=== PATIENT | female | born 1955 | race Caucasian/White ===

== ENCOUNTER → 2018-12-01 | Outpatient (CLI) | payer OTHER | END | disposition home or self-care (01) | LOC: PLD 11:26 → LAB SHORT 11:26 | DX: D48.5 Neoplasm of uncertain behavior of skin (principal) | CPT/HCPCS: 88305 ==

== ENCOUNTER → 2018-12-15 | Outpatient (CLI) | payer OTHER | END | disposition home or self-care (01) | LOC: LAB SHORT 14:10 → PLD 14:10 | DX: D48.5 Neoplasm of uncertain behavior of skin (principal) | CPT/HCPCS: 88305 ==

== ENCOUNTER 2019-12-19 18:55 | Emergency (ER) | payer SELFPAY ==
[~2019-12-19] VITALS: Ht 167.6 cm; Wt 81.7 kg
[2019-12-19] MEDS ORDERED: [UNRECOGNIZED DRUG - REMARK] (19:24)
[2019-12-19] MEDS ORDERED: AMIT10 PO (19:25)
[2019-12-19] MEDS ORDERED: MELO7.5 PO (20:15)
== END 2019-12-19 20:21 | disposition home or self-care (01) ==
LOC: ER 18:55
DX: M25.552 Pain in left hip (principal); G62.9 Polyneuropathy, unspecified; Z85.3 Personal history of malignant neoplasm of breast
CPT/HCPCS: 73502; 99283-25

== ENCOUNTER 2020-01-13 20:00 | Inpatient (IN) | payer OTHER ==
[~2020-01-13] VITALS: Ht 167.6 cm; Wt 96.0 kg
[~2020-01-13 20:00] MED LIST: AMIT10 PO; MELO7.5 PO; [UNRECOGNIZED DRUG - REMARK]
[2020-01-13] MEDS ORDERED: Norco 10-325 T1 EACH PO (20:23)
[2020-01-13] MEDS ORDERED: ONDA4 PO (20:24)
[2020-01-13 20:33] LABS: BASOPHILS ABSOLUTE AUTO 0.03 K/mm3 (0.00-0.23); BASOPHILS PERCENT AUTO 0 % (0-2); EOSINOPHILS ABSOLUTE AUTO 0.05 K/mm3 (0.00-0.68); EOSINOPHILS PERCENT AUTO 1 % (0-6); Hematocrit 27.2 % (33.0-51.0); Hemoglobin 8.5 g/dL (11.5-16.0); IMMATURE GRAN ABSOLUTE AUTO 0.05 K/mm3 (0.00-0.10); IMMATURE GRAN PERCENT AUTO 1 % (0-1); LYMPHOCYTES ABSOLUTE AUTO 1.02 K/mm3 (0.84-5.20); LYMPHOCYTES PERCENT AUTO 13 % (21-46); MONOCYTES ABSOLUTE AUTO 0.59 K/mm3 (0.16-1.47); MONOCYTES PERCENT AUTO 7 % (4-13); Mean Corpuscular HGB 23.9 pg (26.0-34.0); Mean Corpuscular HGB Conc 31.3 g/dL (31.5-36.5); Mean Corpuscular Volume 77 fL (80-100); Mean Platelet Volume 9.1 fL (9.1-12.4); NEUTROPHILS ABSOLUTE AUTO 6.28 K/mm3 (1.96-9.15); NEUTROPHILS PERCENT AUTO 78 % (41-73); Platelet Count 212 K/mm3 (150-400); RDW Coefficient Variation 15.6 % (11.7-14.2); RDW Standard Deviation 43.8 fL (35.1-46.3); Red Blood Cell Count 3.55 M/mm3 (3.80-5.20); White Blood Cell Count 8.02 K/mm3 (4.00-11.30)
[2020-01-13 20:43] LABS: Albumin, Blood 2.4 g/dL (3.4-5.0); Albumin/Globulin Ratio 0.6 (0.8-1.8); Bilirubin, Total 0.3 mg/dL (0.1-1.0); Bun/Creatinine Ratio 15.6 (12.0-20.0); Calcium, Blood 9.4 mg/dL (8.5-10.1); Creatinine, Blood 1.28 mg/dL (0.40-1.00); Globulin, Blood 4.3 g/dL (2.2-4.0); Potassium, Blood 3.6 mmol/L (3.5-5.5); Total Protein, Blood 6.7 g/dL (6.4-8.2)
[2020-01-13 22:16] LABS: Source, Urine Clean Catch
[2020-01-13 22:21] LABS: Bilirubin, Urine Neg (Neg); Blood, Urine 2+ (Neg); Glucose Qualitative, Urine Neg (Neg); Ketones, Urine Neg (Neg); Leukocyte Esterase, Urine Neg (Neg); Nitrite, Urine Neg (Neg); Protein, Urine 2+ (Neg); Urobilinogen, Urine NORM (Normal)
[2020-01-13 22:28] LABS: Amorphous Mod (0-Heavy); Appearance, Urine Clear (Clear); Bacteria Rare /hpf; Color, Urine Yellow (P-Yellow); Red Blood Cells, Urine 0-2 /hpf (0-2); Squamous Epithelial Cells Not Seen /hpf (Few); White Blood Cells, Urine Rare /hpf (0-5)
--- NOTE | 2020-01-14 02:38 | NUR ---
ARRIVAL TO UNIT PT ARRIVED TO UNIT VIA GURNEY FROM ER AT APPROX 0220. PT SLID WITH MULTPLE ASSIST TO BED USING SLIDE SHEET. PT TOLERATED WELL WITH A GRIMACE THAT SUBSIDED ONCE SHE SETTLED IN TO THE BED. PLACED ON 2L OXYGEN WHICH WAS WHAT SHE ARRIVED ON. PT STATES PAIN LEVEL OF 8 AND STATES THAT A 7 WOULD BE ACCEPTABLE FOR HER. SHE DENIES SOB UNLESS HER PAIN INCREASES. SHE IS EDUCATED ON THE UNIT AND CALL LIGHT, SHE IS AWARE OF HER NPO ORDERS. WILL CONTINUE TO MONITOR FOR INCREASES IN PAIN AND SOB. HER LEFT LEG IS EXTERNALLY ROTATED AND SHORTENED. VERY EDEMETOUS PT STATES IS NEW SINCE THE FX.
[2020-01-14 04:32] LABS: Hematocrit 25.3 % (33.0-51.0); Hemoglobin 7.9 g/dL (11.5-16.0); Mean Corpuscular HGB 23.7 pg (26.0-34.0); Mean Corpuscular HGB Conc 31.2 g/dL (31.5-36.5); Mean Corpuscular Volume 76 fL (80-100); Mean Platelet Volume 9.1 fL (9.1-12.4); Platelet Count 193 K/mm3 (150-400); RDW Coefficient Variation 15.4 % (11.7-14.2); RDW Standard Deviation 42.8 fL (35.1-46.3); Red Blood Cell Count 3.33 M/mm3 (3.80-5.20)
[2020-01-14 04:48] LABS: Bun/Creatinine Ratio 17.6 (12.0-20.0); Calcium, Blood 9.3 mg/dL (8.5-10.1); Creatinine, Blood 1.19 mg/dL (0.40-1.00); Potassium, Blood 3.7 mmol/L (3.5-5.5)
--- NOTE | 2020-01-14 05:43 | NUR ---
SHIFT SUMMARY L FEMUR FX, AA0X4. NO ACUTE CHANGES SINCE ARRIVAL. PT HAS BEEN RESTING IN BED. MEDICATED WITH 1MG DILAUDID X2. NO SOB. PT REMAINS ON 2L OXYGEN. LEFT LEG REMAINS MORE SWOLLEN THAN R LEG. FEELS SOMEWHAT COOLER THAN THE RIGHT FOOT. DENIES ANY CHANGE IN SENSATION FROM PT'S BASELINE. NPO PER ORDERS.
--- NOTE | 2020-01-14 07:00 | NUR ---
RECVD REPORT FROM PREVIOUS SHIFT ZAHRAA STEVENSON. PT LYING IN BED, REQUESTS PAIN MEDICATION WITH RATED PAIN AT 9/10, GRIMACE PRESENT, MEDICATED PER MAR
--- NOTE | 2020-01-14 09:40 | NUR ---
Brief supportive therapeutic visit due to Pt's extreme pain. Initialy Pt reports 8/10 pain in her hip and by the end of visit Pt is reporting 9/10 pain. Pt reports mild to moderate anxiety as well. Pt reports her daughter and granddaughter is living with her. She reports adequate support between family and friends. Pt reports at baseline Pt takes her breakthrough pain medication every 6 hours but has increased need of taking pain medication every 4 hours over the last week or so. Ended visit due to Pt's pain. Spoke with Bedside RN Bernarda, discussed case and relayed Pt's pain. Reviewed Pt's home pain medication regimen. Pt takes hydrocodone 10/325mg Q 6 PRN for pain. Spoke with hospital pharmacist Dot and consulted for long acting pain medication. Spoke with Dr Ryan and relayed options and recommendations from pharmacist. Dr Ryan will place order for long acting pain medication. Palliative Care will F/U with Pt for symptom mangement and therapeutic visits.
--- NOTE | 2020-01-14 11:50 | NUR ---
0800-NOTIFIED DR ZHAO OF CONSULT 0830-CALLED PT'S DAUGHTER TO PROVIDED UPDATE, 1100-DR ZHAO CONSULTING WITH PT, DAUGHTER IN ROOM, IMAGING IN ROOM TO TRANSPORT PT FOR STUDIES
--- NOTE | 2020-01-14 12:15 | NUR ---
[facility] HERE TO TRANSPORT PT BACK FOR SURGICAL PREP; PT'S DAUGHTER WILL ACCOMPANY
--- NOTE | 2020-01-14 12:27 | NUR ---
DR PATINO ROUNDREDD ON PT; UPDATED HER OF SURGICAL INTERVENTION
--- NOTE | 2020-01-14 12:58 | NUR ---
NOZIN NASAL REMNANTS CUTTER X3 AMPULES USED TO CLEAN NARES BILAT.
--- NOTE | 2020-01-14 17:45 | NUR ---
following recving report from EM PHYSICIAN Dave, pt transferred back to room on own bed, a/o x 4, pleasant/cooperative, denies pain, n/v. post op vs commenced and stable. pt provided with fluids and snacks. marks catheter patent/draining clear yellow urine. aquacel to L amairani hip surgical site, c/d/i, no shadowing. pt is able to wiggle toes/ankles, sensation to calves, toes pink/warm/dry, ble edematous similar to this morning's assessment
--- NOTE | 2020-01-15 00:22 | NUR ---
PATIENT REPOSITIONED WITH LINEN CHANGE, PATIENT HAS A SMALL DRESSING ON HER LT UPPER BUTTOCK, PATIENT STATED THAT AFTER HER LAST ONCOLOGY APPOINTMENT THEY PLACED A DRESSING AND WHEN SHE REMOVED THAT AT HOME, A SMALL PIECE OF SKIN WAS ALSO REMOVED. AREA IS 2X3CM WITH A PINK NON DRAINING WOUND. XEROFORM PLACED WITH GAUZE AND TEGADERM.
[2020-01-15 04:09] LABS: BASOPHILS ABSOLUTE AUTO 0.02 K/mm3 (0.00-0.23); BASOPHILS PERCENT AUTO 0 % (0-2); EOSINOPHILS PERCENT AUTO 0 % (0-6); Hemoglobin 8.6 g/dL (11.5-16.0); IMMATURE GRAN ABSOLUTE AUTO 0.04 K/mm3 (0.00-0.10); IMMATURE GRAN PERCENT AUTO 1 % (0-1); LYMPHOCYTES PERCENT AUTO 12 % (21-46); MONOCYTES ABSOLUTE AUTO 0.73 K/mm3 (0.16-1.47); MONOCYTES PERCENT AUTO 9 % (4-13); Mean Corpuscular HGB 24.4 pg (26.0-34.0); Mean Corpuscular HGB Conc 31.9 g/dL (31.5-36.5); Mean Corpuscular Volume 77 fL (80-100); Mean Platelet Volume 9.2 fL (9.1-12.4); NEUTROPHILS ABSOLUTE AUTO 6.72 K/mm3 (1.96-9.15); NEUTROPHILS PERCENT AUTO 79 % (41-73); Platelet Count 169 K/mm3 (150-400); RDW Coefficient Variation 15.8 % (11.7-14.2); RDW Standard Deviation 43.6 fL (35.1-46.3); Red Blood Cell Count 3.52 M/mm3 (3.80-5.20); White Blood Cell Count 8.51 K/mm3 (4.00-11.30)
[2020-01-15 04:33] LABS: Bun/Creatinine Ratio 20.7 (12.0-20.0); Calcium, Blood 8.2 mg/dL (8.5-10.1); Creatinine, Blood 1.21 mg/dL (0.40-1.00); Potassium, Blood 3.4 mmol/L (3.5-5.5)
--- NOTE | 2020-01-15 04:51 | NUR ---
PATIENT SLEPT MOST OF THE NIGHT. PAIN HAS BEEN MINIMAL, PATIENT MOVING SELF UP IN BED AND STATES THAT SHE HAS "PTSD" RELATED TO MOVING HER LEGS IN BED DUE TO THE AMOUNT OF PAIN THAT SHE HAD POST FALL. SHE IS EXPECTING THAT SHE WILL BE GETTING OOB TODAY. NO BLEEDING FROM LT HIP SURGICAL SITE. NO ACUTE CHANGES.
--- NOTE | 2020-01-15 08:50 | NUR ---
THERAPY WORKING WITH PT.
--- NOTE | 2020-01-15 09:16 | NUR ---
THERAPY REPORTS PT DID WELL, REPORTS RECC HOME WITH Sadaf.
--- NOTE | 2020-01-15 11:22 | NUR ---
DR PATINO HERE TO SEE PT. PT REQ TO GO HOME TODAY. FAMILY PRESENT. DR PATINO REPORTS TO INFORM HER IF CLEARED BY ORTHO TO GO HOME TODAY.
--- NOTE | 2020-01-15 11:25 | NUR ---
DR PATINO REPORTS TO HAVE GOLDIE DC'D. REPORTS TELE TO BE DC'D WELL. FEMALE COMPENSATION PROGRAMS MANAGER TO D/C GOLDIE AND TELE.
--- NOTE | 2020-01-15 13:49 | NUR ---
DR DALLAS ZHAO RECENTLY TO SEE PT, REPORTS MAY BE DC'D AFTER PT VOIDING.
[2020-01-15] MEDS ORDERED: OXYC10ER PO (15:28)
[2020-01-15] MEDS ORDERED: DIAZ5 PO (15:29)
--- NOTE | 2020-01-15 16:38 | NUR ---
RECENT DISCHARGE: PT EATING AND DRINKING, VOIDING, PASSING GAS. PT/FAMILY REPORTS UNDERSTANDING OF DISCHARGE INSTRUCTIONS. PT REPORTS HAVING 2 WHEEL WALKER AT HOME. REPORTS HAVING BOWEL CARE AT HOME. PT SENT WITH ICE MACHINE, SCRIPTS, BELONGINGS, DRESSINGS. PT CLEARED THERAPY TO GO HOME WITH Sadaf. PV INSTALLER TECH ASSISTED WITH Sadaf. IV BEEN OUT WNL. PT REPORTS PAIN TOLERABLE ON PO PAIN MEDICATION.
== END 2020-01-15 16:25 | disposition home or self-care (01) | DRG 470 ==
LOC: ER 20:00 → SURS 23:15 → ER 01-14 02:20 → EDBEDREQSVC 01-14 02:44 → SURS 01-14 02:47
PROVIDERS: Emergency Medicine; Internal Medicine; Orthopaedic Surgery; ADMIT Internal Medicine
PROC: 0QBC0ZX Excision of Left Lower Femur, Open Approach, Diagnostic (ICD-10-PCS; 2020-01-14)
PROC: 30233N1 Transfusion of Nonautologous Red Blood Cells into Peripheral Vein, Percutaneous Approach (ICD-10-PCS; 2020-01-14)
PROC: 0SRS0J9 Replacement of Left Hip Joint, Femoral Surface with Synthetic Substitute, Cemented, Open Approach (ICD-10-PCS; principal; 2020-01-14 13:00)
DX: M84.552A Pathological fracture in neoplastic disease, left femur, initial encounter for fracture (principal); C79.51 Secondary malignant neoplasm of bone; C50.919 Malignant neoplasm of unspecified site of unspecified female breast; R50.9 Fever, unspecified; D63.0 Anemia in neoplastic disease; Z66 Do not resuscitate; Z20.828 Contact with and (suspected) exposure to other viral communicable diseases
CPT/HCPCS: 36415; 51702; 71045; 72170; 73502; 73552; 80048; 80053; 81001; 83605; 85025; 85027; 86850; 86900; 86901; 86923; 93005; 93010; 96374-59; 96375-59; 97110; 97162; 99285-25; A9270; A9270-GY; C1713; C1776; J0171; J0690; J0735; J1170; J1650; J1885; J2250; J2370; J2405; J2704; J2795; J3010; J3360; J7120; P9016